=== PATIENT | female | born 1940 | race African-American/Black ===

== ENCOUNTER 2016-11-25 11:47 | Emergency (ER) | payer MEDICARE, OTHER ==
[2016-11-25] MEDS ORDERED: TRAMADOL 50 MG TAB ONE (12:51)
== END 2016-11-25 14:07 | disposition home or self-care (01) ==
LOC: ER 11:47
DX: S00.03XA Contusion of scalp, initial encounter (principal); W06.XXXA Fall from bed, initial encounter; Y92.003 Bedroom of unspecified non-institutional (private) residence as the place of occurrence of the external cause; E03.9 Hypothyroidism, unspecified; I10 Essential (primary) hypertension; Z79.899 Other long term (current) drug therapy; Z96.612 Presence of left artificial shoulder joint; Z96.641 Presence of right artificial hip joint
CPT/HCPCS: 70450